=== PATIENT | female | born 1990 | race Hispanic/Latino ===

== ENCOUNTER 2017-11-24 19:32 | Inpatient (IN) | payer BC ==
[2017-11-24 20:26] LABS: BASO # 0.08 K/mm3 (0.0-2.0); BASO % 0.9 % (0.0-3.0); EOS # 0.5 (0.0-0.7); GRAN # 5.2 (1.4-6.5); GRAN % 55.9 % (50.0-68.0); HEMOGLOBIN 11.4 g/dL (12.0-16.0); LYMPH % 32.1 % (22.0-35.0); MEAN CELL VOLUME 86.4 fl (80.0-105.0); MEAN CORPUSCULAR HEMOGLOBIN 28.7 pg (25.0-35.0); MEAN CORPUSCULAR HGB CONC 33.2 g/dl (31.0-37.0); MEAN PLATELET VOLUME 11.5 fl (7.0-11.0); MONO # 0.6 (0.1-0.6); MONO % 6.1 % (1.0-6.0); RBC 3.97 10^6/uL (3.5-6.1); WHITE BLOOD COUNT 9.3 10^3/ul (4.5-11.0)
[2017-11-24 20:35] LABS: ALB/GLOB RATIO 1.2 (1.1-1.8); ALBUMIN 4.3 g/dL (3.0-4.8); ALT/SGPT 25 U/L (7-56); AST/SGOT 23 U/L (14-36); BLOOD UREA NITROGEN 13 mg/dL (7-21); CALCIUM 9.1 mg/dL (8.4-10.5); GFR AFRICAN-AMERICAN > 60; GFR NON-AFRICAN AMERICAN > 60
[2017-11-24] MEDS ORDERED: Vancomycin 1gm in NS 250ml 1 GM/250 ML BAG IVPB STA (21:34)
[2017-11-24] MEDS ORDERED: Piperacillin/Tazobact 3.375 gm 100 ML IVPB STA (21:34)
[2017-11-24] MEDS ORDERED: Sodium Chloride 0.9% 1,000 ML IV STA (21:36)
--- NOTE | 2017-11-24 22:13 | ED PDOC ---
Arrival/HPI - General Chief Complaint: Breast Problem Time Seen by Provider: 11/24/17 19:54 Historian: Patient, Parent - History of Present Illness Narrative History of Present Illness (Text): 11/24/17 22:15 26yr old female presents today with worsening left breast pain. pt states she was seen at [facility] [place] and had I&D of left breast. Patient states she was discharged home on Bactrim and Keflex. Patient states symptoms are worsening. Patient states pain is increasing. Patient states erythema has increased. Patient states she now has pain and swelling into the left axilla. She denies dizziness or weakness. Patient is complaining of subjective fevers at home. Patient states she's feeling fatigued. Past Medical History - Provider Review Nursing Documentation Reviewed: Yes - Travel History Have you recently traveled outside [place] w/in the past 3 mons?: No - Cardiac Hx Cardiac Disorders: No - Pulmonary Hx Respiratory Disorders: Yes Hx Asthma: Yes - Neurological Hx Neurological Disorder: No - HEENT Hx HEENT Disorder: No - Renal Hx Renal Disorder: No - Endocrine/Metabolic Hx Endocrine Disorders: Yes Hx Hypothyroidism: Yes - Hematological/Oncological Hx Blood Disorders: No - Integumentary Hx Dermatological Disorder: Yes Other/Comment: ABSCESS - Musculoskeletal/Rheumatological Hx Musculoskeletal Disorders: No - Gastrointestinal Hx Gastrointestinal Disorders: No - Genitourinary/Gynecological Hx Genitourinary Disorders: No - Psychiatric Hx Psychophysiologic Disorder: No Hx Substance Use: No - Surgical History Hx Section: Yes Family/Social History - Physician Review Nursing Documentation Reviewed: Yes Family/Social History: Neoplasm/Cancer (breast CA; mother) Smoking Status: Never Smoked Hx Alcohol Use: No Hx Substance Use: No Allergies/Home Meds Allergies/Adverse Reactions: Allergies shellfish derived Allergy (Verified 11/24/17 19:34) SWELLING Home Medications: Home Meds Medication Instructions Recorded Confirmed Albuterol HFA [Ventolin HFA 90 2 puff NEB Q6 PRN 11/24/17 11/24/17 mcg/actuation (8 g)] Cephalexin [Keflex] 500 mg PO QID 11/24/17 11/24/17 Ergocalciferol (Vitamin D2) 1 tab PO QWK 11/24/17 11/24/17 [Vitamin D2] Levothyroxine [Synthroid] 75 mcg PO DAILY 11/24/17 11/24/17 Montelukast [Singulair] 10 mg PO DAILY 11/24/17 11/24/17 Sulfamethoxazole/Trimethoprim 1 tab PO BID 11/24/17 11/24/17 [Bactrim DS Tab] Review of Systems - Review of Systems Constitutional: Fevers. absent: Fatigue Respiratory: absent: SOB, Cough Cardiovascular: absent: Chest Pain, Palpitations Gastrointestinal: absent: Abdominal Pain, Nausea, Vomiting Genitourinary Female: absent: Dysuria Musculoskeletal: absent: Arthralgias Skin: Abscess, Cellulitis Neurological: absent: Headache, Dizziness Psychiatric: absent: Anxiety, Depression Physical Exam Vital Signs Reviewed: Yes Vital Signs Temp Pulse Resp BP Pulse Ox 11/24/17 19:38 99.2 F 78 16 120/69 96 Temperature: Afebrile Blood Pressure: Normal Pulse: Regular Respiratory Rate: Normal Appearance: Positive for: Well-Appearing, Non-Toxic, Comfortable Pain Distress: None Mental Status: Positive for: Alert and Oriented X 3 - Systems Exam Head: Present: Atraumatic Mouth: Present: Moist Mucous Membranes Neck: Present: Normal Range of Motion Respiratory/Chest: Present: Clear to Auscultation, Good Air Exchange. No: Respiratory Distress, Accessory Muscle Use Cardiovascular: Present: Regular Rate and Rhythm, Normal S1, S2. No: Murmurs Abdomen: No: Tenderness, Distention Breast/Axillary: Present: Axillary Lymphad (there is a large quarter sized tender mobile mass noted to the axilla. no erythema. ), Erythema, Masses, Swelling, Tender to Palpation (left breast; there is tenderness, swelling and erythema with induration noted to the lower outer quadrant of the breast; there is a dime sized wound noted to the breast tissue; + tenderness, + warmth. ). No : Fluctuance Back: Present: Normal Inspection. No: Midline Tenderness, Paraspinal Tenderness Upper Extremity: Present: Normal ROM Lower Extremity: Present: Normal ROM Neurological: Present: GCS=15, Speech Normal Skin: Present: Warm, Dry, Normal Color Psychiatric: Present: Alert, Oriented x 3 Medical Decision Making ED Course and Treatment: 11/24/17 22:27 26-year-old female with a left breast abscess/mass status post incision and drainage with failure of outpatient antibiotics CBC within normal limits CMP within normal limits Blood cultures pending Wound cultures pending vancomycin and zosyn started IV toradol given for pain. pt was seen and evaluated by dr. brown; will add US of left breast r/o mass. US; FINDINGS: Limited images of the left breast from 4:00 - 5 o'clock. Edematous breast tissue is present. No drainable fluid collection identified. No solid mass identified. IMPRESSION: Edema 4-5 o clock without abscess or mass. case discussed with dr. mcmillan in depth; accepts admission; will consult surgery ; dr. barrera. Impression; breast cellulitis, failure of outpatient abx. admit med/surg. 11/25/17 00:16 during infusion of vancomycin; pt developed pruritis; vancomycin stopped; benadryl and solumedrol given IV. lungs cta bilaterally. pt in no distress. physical therapy resident at bedside. - Lab Interpretations Lab Results: 11/24/17 20:15 11/24/17 20:15 Lab Results 11/24/17 20:15: WBC 9.3, RBC 3.97, Hgb 11.4 L, Hct 34.3 L, MCV 86.4, MCH 28.7, MCHC 33.2, RDW 13.0, Plt Count 296, MPV 11.5 H, Gran % 55.9, Lymph % (Auto) 32.1 , Ada % (Auto) 6.1 H, Eos % (Auto) 5.0, Baso % (Auto) 0.9, Gran # 5.20, Lymph # (Auto) 3.0, Ada # (Auto) 0.6, Eos # (Auto) 0.5, Baso # (Auto) 0.08 11/24/17 20:15: Sodium 143, Potassium 4.4, Chloride 105, Carbon Dioxide 25, Anion Gap 17, BUN 13, Creatinine 0.9, Est GFR ( Amer) > 60, Est GFR (Non- Af Amer) > 60, Random Glucose 84, Calcium 9.1, Total Bilirubin 0.1 L, AST 23, ALT 25, Alkaline Phosphatase 87, Total Protein 7.9, Albumin 4.3, Globulin 3.6, Albumin/Globulin Ratio 1.2 - RAD Interpretation Radiology Orders: 11/24/17 21:36 BREAST UNILATERAL LEFT [US] Stat - Medication Orders Current Medication Orders: Diphenhydramine HCl (Benadryl) 50 mg IVP STAT STA Stop: 11/25/17 00:14 Methylprednisolone (Solu-Medrol) 125 mg IVP STAT STA Stop: 11/25/17 00:14 Discontinued Medications Vancomycin HCl (Vancomycin 1gm) 1 gm in 250 mls @ 167 mls/hr IVPB STAT STA PRN Reason: Protocol Stop: 11/24/17 23:03 Last Admin: 11/24/17 23:20 Dose: 167 mls/hr eMAR Start Stop Document 11/24/17 23:20 AD (Rec: 11/24/17 23:22 AD [email or web address]) Intravenous Solution Start Date 11/24/17 Start Time 23:22 Piperacillin Sod/Tazobactam Sod (Zosyn 3.375 In Ns 100ml) 100 mls @ 200 mls/hr IVPB STAT STA PRN Reason: Protocol Stop: 11/24/17 22:03 Last Admin: 11/24/17 21:45 Dose: 200 mls/hr eMAR Start Stop Document 11/24/17 21:45 AD (Rec: 11/24/17 22:15 AD [email or web address]) Intravenous Solution Start Date 11/24/17 Start Time 21:45 Sodium Chloride (Sodium Chloride 0.9%) 1,000 mls @ 999 mls/hr IV .Q1H1M STA Stop: 11/24/17 22:36 Last Admin: 11/24/17 21:45 Dose: 999 mls/hr eMAR Start Stop Document 11/24/17 21:45 AD (Rec: 11/24/17 22:15 AD [email or web address]) Intravenous Solution Start Date 11/24/17 Start Time 21:45 Ketorolac Tromethamine (Toradol) 30 mg IVP STAT STA Stop: 11/24/17 20:58 Last Admin: 11/24/17 21:09 Dose: 30 mg MAR Pain Assessment Document 11/24/17 21:09 AD (Rec: 11/24/17 21:09 AD [email or web address] Pain Reassessment Is this a pain reassessment? No Presence of Pain Presence of Pain Yes Pain Scale Used Pain Scale Used Numeric Location Left, Right or Bilateral Left Pain Location Body Site Breast Description Intensity of Pain at present 5 IVP Administration Document 11/24/17 21:09 AD (Rec: 11/24/17 21:09 AD [email or web address]) Charges for Administration # of IVP Administrations 1 Disposition/Present on Arrival - Present on Arrival Any Indicators Present on Arrival: No History of DVT/PE: No History of Uncontrolled Diabetes: No Urinary Catheter: No History of Decub. Ulcer: No History Surgical Site Infection Following: None - Disposition Have Diagnosis and Disposition been Completed?: Yes Diagnosis: Cellulitis of breast Disposition: HOSPITALIZED Disposition Time: 22:09 Patient Plan: Admission Patient Problems: Current Active Problems Problem Status Onset Cellulitis of breast Acute Condition: FAIR
[2017-11-25] MEDS ORDERED: DiphenhydrAMINE 50 mg/ml Inj IVP STA (00:13)
--- NOTE | 2017-11-25 00:16 | US ---
EXAM: US Left Breast, Complete EXAM DATE/TIME: 11/24/2017 9:36 PM CLINICAL HISTORY: 26 years old, female; Pain; Breast pain; Left; Prior surgery; Surgery date: Post-operative (0-2 days); Surgery type: Abscess drainage; Additional info: Breast abscess/cellulitis TECHNIQUE: Complete real time ultrasound of all four quadrants of the left breast and the retroareolar region, including ultrasound of the axilla when performed. COMPARISON: No relevant prior studies available. FINDINGS: Limited images of the left breast from 4:00 - 5 o'clock. Edematous breast tissue is present. No drainable fluid collection identified. No solid mass identified. IMPRESSION: Edema 4-5 o clock without abscess or mass. ASSESSMENT: BI-RADS category 0. History lump in breast on paperwork. No prior studies or reports provided. Recommend correlation with prior studies. Additional imaging with mammogram may be necessary depending on the patient's clinical history and exam.
--- NOTE | 2017-11-25 00:37 | CP.PCM.CON ---
History of Present Illness - History of Present Illness History of Present Illness: General Surgery consult note for Dr. Yuen Consult for: persistent cellulitis left breast s/p incision and drainage Pt is a 27F who presented to ED fore persistent pain and redness of her left breast where she had an incision and drainage at [facility] [place] 3 days ago. Patient states that one week ago she noted a lump in her left axilla when shaving and went to [facility] [place]. They discovered a breast abscess and did an incision and drainage without packing and patient was sent home on PO keflex and bactrim. Patient states that redness and pain has not improved and that she has malaise and chills at home so she [place] [facility] Patient also complains of sharp BL chest pain. Patient denies any fevers, SOB, nausea, vomiting, diarrhea, or any other symptoms. Patient has a 7 month old son at home but stopped breast feeding 4-5 months ago. Denies any difficulty breast feeding or any nipple discharge since. During exam patient had vancomycin running and had received zosyn just prior and was complaining of redness and diffuse itching PMH: asthma, hypothryoidism PSH: \I&D left breast, c-sectionx2 all: Shellfish social: denies all substances Review of Systems - Review of Systems All systems: reviewed and no additional remarkable complaints except (as per HPI ) Past Patient History - Past Medical History & Family History Past Medical History?: Yes Pertinent Family History: mother diagnosed with breast cancer in her 40's - Past Social History Smoking Status: Never Smoked Alcohol: None Drugs: Denies - CARDIAC Hx Cardiac Disorders: No - PULMONARY Hx Respiratory Disorders: Yes Hx Asthma: Yes - NEUROLOGICAL Hx Neurological Disorder: No - HEENT Hx HEENT Problems: No - RENAL Hx Chronic Kidney Disease: No - ENDOCRINE/METABOLIC Hx Endocrine Disorders: Yes Hx Hypothyroidism: Yes - HEMATOLOGICAL/ONCOLOGICAL Hx Blood Disorders: No - INTEGUMENTARY Hx Dermatological Problems: Yes Other/Comment: ABSCESS - MUSCULOSKELETAL/RHEUMATOLOGICAL Hx Musculoskeletal Disorders: No - GASTROINTESTINAL Hx Gastrointestinal Disorders: No - GENITOURINARY/GYNECOLOGICAL Hx Genitourinary Disorders: No - PSYCHIATRIC Hx Psychophysiologic Disorder: No Hx Substance Use: No - SURGICAL HISTORY Hx Section: Yes Meds Allergies/Adverse Reactions: Allergies Allergy/AdvReac Type Severity Reaction Status Date / Time shellfish derived Allergy SWELLING Verified 11/24/17 19:34 vancomycin Allergy ITCHING Verified 11/25/17 01:23 Physical Exam - Constitutional Appears: Well, Non-toxic, No Acute Distress - Head Exam Head Exam: ATRAUMATIC, NORMOCEPHALIC - Eye Exam Eye Exam: Normal appearance. absent: Conjunctival injection, Scleral icterus - ENT Exam ENT Exam: Mucous Membranes Moist, Normal Oropharynx - Respiratory Exam Respiratory Exam: NORMAL BREATHING PATTERN. absent: Accessory Muscle Use, Respiratory Distress - Cardiovascular Exam Cardiovascular Exam: RRR - GI/Abdominal Exam GI & Abdominal Exam: Soft. absent: Distended, Tenderness - Extremities Exam Extremities exam: Negative for: calf tenderness, pedal edema - Neurological Exam Neurological exam: Alert, Oriented x3 - Psychiatric Exam Psychiatric exam: Normal Affect, Normal Mood - Skin Skin Exam: Dry, Erythema, Warm - Additional Findings Additional findings: Breast exam: left breast with incision approximately 1cm at the 5o'clock position with small amount of surrounding induration but no fluctuance, no expressible fluid, area of erythema extending medially outside the borders previously marked at former hospitalization. No other breast masses bilateral breast left axillary exam: subcutaneous mass approximately 3cm in diameter, mobile, tender. No cervical or infraclavian/supraclavian lymphadenopathy Results - Vital Signs Recent Vital Signs: Last Vital Signs Temp 99.2 F 11/24/17 19:38 Pulse 78 11/24/17 19:38 Resp 16 11/24/17 19:38 BP 120/69 11/24/17 19:38 Pulse Ox 96 11/24/17 19:38 - Labs Result Diagrams: 11/24/17 20:15 11/24/17 20:15 Assessment & Plan - Assessment and Plan (Free Text) Assessment: 27F with a breast abscess s/p incision and drainage with worsening cellulitis refractory to outpatient PO antibiotics Plan: US: edema, no fluid collection trend CBC F/U wound cultures EKG to r/o cardiac cause of chest pain Recommend ID consult for continued antibiotic administration. For now will D/C vanc and zosyn d/t pt reaction and start one dose of zyvox and merrem in the AM. Warm compresses to the left breast PRN pain medication Will discuss with Dr. Wilfrid Gonzalez PGY2
[2017-11-25 01:05] VITALS: BMI 23.9
[2017-11-25] MEDS ORDERED: Albuterol 0.083% Inhal Sol (2.5 mg/3 mL) UD IH PRN (02:10)
[2017-11-25] MEDS: Meropenem 500 MG in Sodium Chloride 0.9% 50 ML IVPB SCH ×4 (05:46→21:34)
[2017-11-25] MEDS ORDERED: Linezolid 600 mg in D5W 300 ml 600 MG/300 ML BAG IVPB SCH (10:00)
--- NOTE | 2017-11-25 17:02 | CARD ---
APPROVED REPORT EKG Measurement Heart [id number] ID [id number] <Conclusion> Sinus rhythm with marked sinus arrhythmia Otherwise normal ECG
--- NOTE | 2017-11-25 17:52 | CP.PCM.CON ---
History of Present Illness - History of Present Illness History of Present Illness: Infectious Disease Consultation: November 25, 2017 27 yo female with pain and redness in her left breast with lump in left lower axilla who initially went to [facility] [place] for evaluation. The patient was determined to have a left lower quadrant abscess in the left breast. Enlarged lymph nodes palpitated in left axilla. She was given Bactim DS and Keflex. Redness and pain did not improve and the patient came to [facility] [place] for evaluation. In ER the patient received IV Vancomycin and became flush (Tahmina's Syndrome? Rash is not there now when I evaluate the patient). PMHx: Asthma, Hypothyroidism PSHx: Left breast I&D, x 2 Allergies: Shellfish Vancomycin ?? (see above) Social Hx: No tobacco or illicit drug use Social EtOH Active Medications Albuterol Sulfate (Albuterol 0.083% Inhal Ave (2.5 Mg/3 Ml) Ud) 2.5 mg IH [id number] PRN PRN Reason: Shortness of Breath Ibuprofen (Motrin Tab) 600 mg PO Q6H PRN PRN Reason: Pain, moderate (4-7) Last Admin: 11/25/17 14:44 Dose: 600 mg Levothyroxine Sodium (Synthroid) 75 mcg PO 0600 LOUANN Montelukast Sodium (Singulair) 10 mg PO HS LOUANN Family Hx: breast cancer in mother and grandmother. ROS: Fevers, chills, left breast pain No chest pain, abdominal pain, melena, hematuria, hematemesis, hematochezia, depression, anxiety, diarrhea, headaches, dizziness, vision loss, hearing loss, loss of consciousness. Past Patient History - Past Medical History & Family History Past Medical History?: Yes - Past Social History Smoking Status: Never Smoked Alcohol: None Drugs: Denies - CARDIAC Hx Cardiac Disorders: No - PULMONARY Hx Respiratory Disorders: Yes Hx Asthma: Yes - NEUROLOGICAL Hx Neurological Disorder: No - HEENT Hx HEENT Problems: No - RENAL Hx Chronic Kidney Disease: No - ENDOCRINE/METABOLIC Hx Endocrine Disorders: Yes Hx Hypothyroidism: Yes - HEMATOLOGICAL/ONCOLOGICAL Hx Blood Disorders: No - INTEGUMENTARY Hx Dermatological Problems: Yes Other/Comment: ABSCESS - MUSCULOSKELETAL/RHEUMATOLOGICAL Hx Musculoskeletal Disorders: No - GASTROINTESTINAL Hx Gastrointestinal Disorders: No - GENITOURINARY/GYNECOLOGICAL Hx Genitourinary Disorders: No - PSYCHIATRIC Hx Psychophysiologic Disorder: No Hx Substance Use: No - SURGICAL HISTORY Hx Section: Yes Meds Allergies/Adverse Reactions: Allergies Allergy/AdvReac Type Severity Reaction Status Date / Time shellfish derived Allergy SWELLING Verified 11/24/17 19:34 vancomycin Allergy ITCHING Verified 11/25/17 01:23 - Medications Medications: Current Medications Albuterol Sulfate (Albuterol 0.083% Inhal Ave (2.5 Mg/3 Ml) Ud) 2.5 mg IH [id number] PRN PRN Reason: Shortness of Breath Ibuprofen (Motrin Tab) 600 mg PO Q6H PRN PRN Reason: Pain, moderate (4-7) Last Admin: 11/25/17 14:44 Dose: 600 mg Levothyroxine Sodium (Synthroid) 75 mcg PO 0600 LOUANN Montelukast Sodium (Singulair) 10 mg PO HS LOUANN Physical Exam - Constitutional Appears: Well, Non-toxic, No Acute Distress - Head Exam Head Exam: ATRAUMATIC, NORMOCEPHALIC - Eye Exam Eye Exam: EOMI, PERRL Pupil Exam: NORMAL ACCOMODATION, PERRL - ENT Exam ENT Exam: Mucous Membranes Moist, Normal External Ear Exam, TM's Normal Bilaterally - Neck Exam Neck exam: Positive for: Full Rom, Normal Inspection - Respiratory Exam Respiratory Exam: Clear to Auscultation Bilateral, NORMAL BREATHING PATTERN. absent: Rales, Rhonchi, Wheezes - Cardiovascular Exam Cardiovascular Exam: REGULAR RHYTHM, RRR, +S1, +S2 - GI/Abdominal Exam GI & Abdominal Exam: Normal Bowel Sounds, Soft. absent: Distended, Tenderness - Extremities Exam Extremities exam: Positive for: full ROM, normal inspection Additional comments: except left axilla as described below. - Neurological Exam Neurological exam: Alert, CN II-XII Intact, Oriented x3 - Psychiatric Exam Psychiatric exam: Normal Affect, Normal Mood - Skin Additional comments: Breast exam: left breast with incision approximately 1cm at the 5o'clock position with small amount of surrounding induration but no fluctuance, no expressible fluid, area of erythema extending medially outside the borders previously marked at former hospitalization. No other breast masses bilateral breast left axillary exam: subcutaneous mass approximately 3cm in diameter, mobile, tender. No cervical or infraclavian/supraclavian lymphadenopathy Results - Vital Signs Recent Vital Signs: Last Vital Signs Temp 97.9 F 11/25/17 08:23 Pulse 80 11/25/17 08:23 Resp 20 11/25/17 08:23 BP 120/66 11/25/17 08:23 Pulse Ox 97 11/25/17 08:23 - Labs Result Diagrams: 11/24/17 20:15 11/24/17 20:15 Assessment & Plan - Assessment and Plan (Free Text) Assessment: 27 yo female with left lower quadrant abscess in the left breast with enlarged axillary lymph nodes. Started on Meropenem and Zyvox for treatment. Will check records at [facility] for cultures (hopefully they were done.). Local wound care as per surgery. Explained infectious issues to the patient and potential time frames of improvement. Thank you for allowing me to participate in the care of the patient, we will follow with you.
--- NOTE | 2017-11-26 00:34 | HP ---
DATE OF EXAM: 11/25/2017 HISTORY OF PRESENT ILLNESS: This 27-year-old female was examined at her bedside in the presence of her nurse Debbie Law, and her . The patient presented to [facility] ER last evening complaining of pain, erythema and swelling of a left breast abscess. Apparently this occurred a few days ago, at which time, she went to the [facility] ER. She was seen in evaluation and had a I&D of abscess, and was sent home on oral Keflex and Bactrim. The patient re-presented to the [facility] ER complaining of malaise, chills and worsening pain and erythema to her left breast as well as feeling enlarged lymph nodes in her left axilla. The patient in the [facility] was given IV vancomycin, experienced a flushing reaction, and then was given meropenem and Zyvox, and is currently awaiting Infectious Disease consultation. The patient is also being followed by Dr. Jacky Yuen from Surgery. The patient is a 27-year-old mother, who had her last child on 04/25/2017, and has not breastfed for the past several months. ALLERGIES: SHE ADMITS TO A SENSITIVITY TO SHELLFISH AND NOW VANCOMYCIN. OUTPATIENT MEDICATIONS: Had included Bactrim, Keflex, Singulair, vitamin D, ProAir inhaler and Synthroid. REVIEW OF SYSTEMS: CONSTITUTIONAL: She had malaise and chills. HEAD: No headache or seizure. EYES: No change in visual acuity. EARS: No hearing loss. THROAT: No swallowing difficulty. NECK: No stiffness. CARDIAC: No chest pain, no hypertension. PULMONARY: No cough. No hemoptysis. GASTROINTESTINAL: No peptic ulcer disease. GENITOURINARY: No dysuria. SKIN: As per HPI. VASCULAR: No claudication. PSYCHOLOGICAL: Alert and oriented x3. NEUROLOGICAL: Intact. FAMILY HISTORY: Significant in that her mother and grandmother, both had breast cancer. Her mother is status post bilateral mastectomy, and her mother was diagnosed with breast cancer at age 37. PHYSICAL EXAMINATION: VITAL SIGNS: Temperature 97.9, respirations 20, pulse 80, blood pressure 120/66. Pulse ox 97% room air. She is in a normal sinus rhythm on the hall monitor. HEENT: Head: Normocephalic, atraumatic. Eyes: No icterus. Ears: Clear. Throat: Noninjected. NECK: Supple. HEART: Regular S1 and S2. LUNGS: Clear. ABDOMEN: Soft. EXTREMITIES: No edema. SKIN: Without rash. NEUROLOGICAL: Intact. PSYCHOLOGICAL: Alert. VASCULAR: Legs warm to touch. BREASTS: Left breast was examined with nurse Debbie Law. She does have an area of erythema around the incision and drainage site of her recently lanced abscess, and there was a palpable lymph node in her left axilla. Breast ultrasound was reviewed, it shows edema at the 4 o'clock to 5 o'clock position, with no evidence of abscess or mass. EKG was reviewed and shows normal sinus rhythm with nonspecific ST-T wave changes. IMPRESSION: A 27-year-old female with newly noted left breast abscess, history of hypothyroidism and asthma, now admitted with abscess and cellulitis of the breast, and evidence of left axillary lymph node involvement. PLAN: The plan at present is to await blood and wound cultures. She will continue on dual nebulizer every 6 hours p.r.n. shortness of breath, meropenem 500 mg IV every 8, Motrin 600 mg p.o. every 6 hours p.r.n. pain, Singulair 10 mg p.o. at bedtime, Synthroid 75 mcg p.o. daily and Zyvox 600 mg p.o. every 12. She is on a regular diet. She is ordered to have warm compresses hourly to the left breast area. She is encouraged to ambulate with assistance, and will be followed by Surgery and Infectious Disease. 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 In the discussion with the possibility of a mammogram when stable and possible genetic [facility] testing given her maternal strong family history of breast cancer as well. The patient was aware and in agreement with the above, and hopefully will be compliant with this recommendation. Greater than 75 minutes was spent in the care management, review of labs, orders and x-rays for this patient. All questions were answered. Leeann Garcia MD MTDD
[2017-11-26] MEDS: Levothyroxine 75 MCG TAB PO SCH (05:48)
[2017-11-26] MEDS: Meropenem 500 MG in Sodium Chloride 0.9% 50 ML IVPB SCH ×3 (05:48→21:33)
--- NOTE | 2017-11-26 07:33 | CP.PCM.PN ---
Subjective - Date & Time of Evaluation Date of Evaluation: 11/26/17 Time of Evaluation: 07:00 - Subjective Subjective: General Surgery Note for Dr. Yuen Patient seen and examined at bedside. No acute event overnight. Patient states pain is still present. She denies fever/chills. Patient is tolerating regular diet and having BMs. No other complaints at this time. Objective - Vital Signs/Intake and Output Vital Signs (last 24 hours): Temp Pulse Resp BP Pulse Ox 98.0 F 61 20 110/64 93 L 11/25/17 18:00 11/25/17 18:00 11/25/17 18:00 11/25/17 18:00 11/25/17 18:00 Intake and Output: 11/26/17 11/26/17 06:59 18:59 Intake Total 240 Balance 240 - Medications Medications: Current Medications Albuterol Sulfate (Albuterol 0.083% Inhal Ave (2.5 Mg/3 Ml) Ud) 2.5 mg IH [id number] PRN PRN Reason: Shortness of Breath Meropenem 500 mg/ Sodium (Chloride) 50 mls @ 100 mls/hr IVPB Q8 LOUANN PRN Reason: Protocol Last Admin: 11/26/17 05:48 Dose: 100 mls/hr Ibuprofen (Motrin Tab) 600 mg PO Q6H PRN PRN Reason: Pain, moderate (4-7) Last Admin: 11/25/17 14:44 Dose: 600 mg Levothyroxine Sodium (Synthroid) 75 mcg PO 0600 [facility] Last Admin: 11/26/17 05:48 Dose: 75 mcg Linezolid (Zyvox) 600 mg PO Q12 LOUANN PRN Reason: Protocol Last Admin: 11/25/17 21:34 Dose: 600 mg Montelukast Sodium (Singulair) 10 mg PO HS [facility] Last Admin: 11/25/17 21:34 Dose: 10 mg - Additional Findings Additional findings: - Constitutional Appears: Well, Non-toxic, No Acute Distress - Head Exam Head Exam: ATRAUMATIC, NORMOCEPHALIC - Eye Exam Eye Exam: Normal appearance - ENT Exam ENT Exam: Mucous Membranes Moist - Respiratory Exam Respiratory Exam: NORMAL BREATHING PATTERN - Cardiovascular Exam Cardiovascular Exam: RRR - GI/Abdominal Exam GI & Abdominal Exam: Soft. absent: Distended, Tenderness - Extremities Exam Extremities exam: Negative for: calf tenderness, pedal edema - Neurological Exam Neurological exam: Alert, Awake, Oriented x3 - Psychiatric Exam Psychiatric exam: Normal Affect, Normal Mood - Skin Skin Exam: Dry, Erythema, Warm - Additional Findings Additional findings: Breast exam: left breast with incision approximately 1cm at the 5o'clock position with small amount of surrounding induration but no fluctuance, no drainage left axillary exam: subcutaneous mass approximately 3cm in diameter, mobile, tender. No cervical or infraclavian/supraclavian lymphadenopathy Assessment and Plan - Assessment and Plan (Free Text) Assessment: 27F with a breast abscess s/p incision and drainage with worsening cellulitis refractory to outpatient oral antibiotics Plan: f/u wound cultures f/u ID recommendations Continue zyvox and merrem Warm compresses to axilla Analgesics PRN Further recommendations as per Dr. Wilfrid Gale PGY1
--- NOTE | 2017-11-26 18:01 | CP.PCM.PN ---
Subjective - Date & Time of Evaluation Date of Evaluation: 11/26/17 Time of Evaluation: 16:00 - Subjective Subjective: Infectious Disease Follow Up: November 26, 2017 27 yo female with pain and redness in her left breast with lump in left lower axilla who initially went to [facility] [place] for evaluation. The patient was determined to have a left lower quadrant abscess in the left breast. Enlarged lymph nodes palpitated in left axilla. She was given Bactim DS and Keflex. Redness and pain did not improve and the patient came to [facility] [place] for evaluation. In ER the patient received IV Vancomycin and became flush (Tahmina's Syndrome? Rash is not there now when I evaluated the patient). The patient still complains of left breast pain. Objective - Vital Signs/Intake and Output Vital Signs (last 24 hours): Temp Pulse Resp BP Pulse Ox 97.8 F 93 H 19 112/68 100 11/26/17 07:39 11/26/17 07:39 11/26/17 07:39 11/26/17 07:39 11/26/17 07:39 Intake and Output: 11/26/17 11/26/17 06:59 18:59 Intake Total 240 720 Balance 240 720 - Medications Medications: Current Medications Albuterol Sulfate (Albuterol 0.083% Inhal Ave (2.5 Mg/3 Ml) Ud) 2.5 mg IH [id number] PRN PRN Reason: Shortness of Breath Meropenem 500 mg/ Sodium (Chloride) 50 mls @ 100 mls/hr IVPB Q8 LOUANN PRN Reason: Protocol Last Admin: 11/26/17 13:03 Dose: 100 mls/hr Ibuprofen (Motrin Tab) 600 mg PO Q6H PRN PRN Reason: Pain, moderate (4-7) Last Admin: 11/25/17 14:44 Dose: 600 mg Levothyroxine Sodium (Synthroid) 75 mcg PO 0600 [facility] Last Admin: 11/26/17 05:48 Dose: 75 mcg Linezolid (Zyvox) 600 mg PO Q12 LOUANN PRN Reason: Protocol Last Admin: 11/26/17 10:21 Dose: 600 mg Montelukast Sodium (Singulair) 10 mg PO HS [facility] Last Admin: 11/25/17 21:34 Dose: 10 mg - Constitutional Appears: Non-toxic, No Acute Distress, Chronically Ill - Head Exam Head Exam: ATRAUMATIC, NORMOCEPHALIC - Eye Exam Eye Exam: EOMI, PERRL Pupil Exam: NORMAL ACCOMODATION, PERRL - ENT Exam ENT Exam: Mucous Membranes Moist, Normal External Ear Exam, TM's Normal Bilaterally - Neck Exam Neck Exam: Full ROM, Normal Inspection - Respiratory Exam Respiratory Exam: Clear to Ausculation Bilateral, NORMAL BREATHING PATTERN. absent: Rales, Rhonchi, Wheezes - Cardiovascular Exam Cardiovascular Exam: REGULAR RHYTHM, RRR, +S1, +S2 - GI/Abdominal Exam GI & Abdominal Exam: Soft, Normal Bowel Sounds. absent: Distended, Tenderness - Extremities Exam Extremities Exam: Full ROM, Normal Inspection - Neurological Exam Neurological Exam: Alert, Awake, CN II-XII Intact, Oriented x3 - Psychiatric Exam Psychiatric exam: Normal Affect, Normal Mood - Skin Skin Exam: Dry, Intact, Warm Additional comments: Breast exam: left breast with incision approximately 1cm at the 5o'clock position with small amount of surrounding induration but no fluctuance, no expressible fluid, area of erythema extending medially outside the borders previously marked at former hospitalization. No other breast masses bilateral breast left axillary exam: subcutaneous mass approximately 3cm in diameter, mobile, tender. No cervical or infraclavian/supraclavian lymphadenopathy Assessment and Plan - Assessment and Plan (Free Text) Assessment: 27 yo female with left lower quadrant abscess in the left breast with enlarged axillary lymph nodes. Started on Meropenem and Zyvox for treatment. Will check records at [facility] [place] for cultures (hopefully they were done.). Local wound care as per surgery. Explained infectious issues to the patient and potential time frames of improvement. She is still complaining of left breast pain. Gram positive cocci in wound culture. Thank you for allowing me to participate in the care of the patient, we will follow with you.
--- NOTE | 2017-11-27 01:40 | PN ---
DATE: 11/26/2017 SUBJECTIVE: This 27-year-old female was examined at her bedside in the presence of her mother and nurse Sarai Nguyen registered nurse. The patient remains hospitalized with left breast cellulitis and lymph gland swelling secondary to recent left breast skin infection status post incision and drainage and failure to respond to oral antibiotics as an outpatient including Keflex and Bactrim. The patient is being followed by Dr. Yuen from Surgery as well as Dr. Huy Giraldo from Infectious Disease. At present, she is receiving meropenem 500 mg IV every 8 as well as Zyvox 600 mg p.o. every 12. Her blood cultures show no growth at 24 hours, and her wound culture is showing a Gram-positive cocci; identification and sensitivities are pending. PHYSICAL EXAMINATION HEENT: Head normocephalic, atraumatic. Eyes: No icterus. Ears: Clear. Throat: Noninjected. NECK: Supple. HEART: Regular S1 and S2. LUNGS: Clear. ABDOMEN: Soft. EXTREMITIES: No edema. SKIN: Without rash. NEUROLOGICAL: Intact. PSYCHOLOGICAL: Alert. VASCULAR: Legs warm to touch. BREASTS: Left breast area of cellulitis is improved with less erythema, less warmth. There has been no further spread of the cellulitic rash and she does have a persistent left axillary lymph node palpable. IMPRESSION: A 27-year-old female with acute left breast cellulitis, left axillary lymph gland adenopathy secondary to the localized infection in her breast with comorbidities of asthma, hypothyroidism. PLAN: Plan at present is to continue albuterol inhaler every 6 hours p.r.n. shortness of breath, meropenem 500 mg IV every 8, ibuprofen 600 mg p.o. every 6 hours p.r.n. pain, Singulair 10 mg p.o. at bedtime, Synthroid 75 mcg p.o. daily and Zyvox 600 mg p.o. every 12. The patient continues with warm soaks every 1 hour to the left breast wall for area. She is on a regular diet. She has been encouraged to ambulate with assistance, and will be followed on a daily basis by Surgery and Infectious Disease. As discussed with the patient and her mother at the bedside, she was reminded to follow up with her fusing furnace loader upon discharge for further breast exam studies including a mammography when stable, and given her strong maternal family history of breast cancer with her grandmother and mother, I have recommended she discuss this with her fusing furnace loader as well, and consider getting blood tested with the BRCA gene for completeness sake. The mother is aware and in agreement, and hopefully they will be compliant with these recommendations. Greater than 35 minutes was spent in the care management, review of labs, orders and x-rays. All questions were answered. Leeann Garcia MD [facility]DMeggan
[2017-11-27] MEDS: Levothyroxine 75 MCG TAB PO SCH (05:58)
[2017-11-27] MEDS: Meropenem 500 MG in Sodium Chloride 0.9% 50 ML IVPB SCH (05:58)
[2017-11-27 07:18] LABS: BASO # 0.07 K/mm3 (0.0-2.0); BASO % 0.9 % (0.0-3.0); EOS # 0.4 (0.0-0.7); EOS % 4.7 % (1.5-5.0); GRAN # 4.33 (1.4-6.5); HEMOGLOBIN 11.4 g/dL (12.0-16.0); LYMPH # 2.8 (1.2-3.4); LYMPH % 34.5 % (22.0-35.0); MEAN CELL VOLUME 88.3 fl (80.0-105.0); MEAN CORPUSCULAR HEMOGLOBIN 28.4 pg (25.0-35.0); MEAN CORPUSCULAR HGB CONC 32.2 g/dl (31.0-37.0); MEAN PLATELET VOLUME 11.5 fl (7.0-11.0); MONO # 0.5 (0.1-0.6); MONO % 5.9 % (1.0-6.0); RBC 4.01 10^6/uL (3.5-6.1); RED CELL DISTRIBUTION WIDTH 13.4 % (11.5-14.5)
[2017-11-27 07:43] LABS: ALB/GLOB RATIO 1.2 (1.1-1.8); ALBUMIN 3.7 g/dL (3.0-4.8); ALT/SGPT 21 U/L (7-56); AST/SGOT 16 U/L (14-36); BLOOD UREA NITROGEN 15 mg/dL (7-21); CALCIUM 8.4 mg/dL (8.4-10.5); GFR AFRICAN-AMERICAN > 60; GFR NON-AFRICAN AMERICAN > 60
[2017-11-27 07:50] VITALS: BP 102/63; PULSE 56; RESP 18; TEMP 97.5; O2SAT 98
[2017-11-27] MEDS ORDERED: Lidocaine 1% Inj (20ml) IJ STA (12:15)
--- NOTE | 2017-11-27 12:52 | PCM.SURG1 ---
Surgeon's Initial Post Op Note - Surgeon's Notes Surgeon: Dr. Yuen Cnc Lathe Machine Operator: Baljinder PGY1 Type of Anesthesia: Local Pre-Operative Diagnosis: Left axillary abscess Operative Findings: Left axillary abscess, 6 cc of purulent fluid aspirated Post-Operative Diagnosis: Left axillary abscess Operation Performed: US guided Drainage of Left axillary abscess at bedside Specimen/Specimens Removed: 6 cc of purulent fluid Estimated Blood Loss: EBL {In ML}: 2 Blood Products Given: N/A Drains Used: No Drains Post-Op Condition: Good Date of Surgery/Procedure: 11/27/17 Time of Surgery/Procedure: 12:52
--- NOTE | 2017-11-27 13:23 | CP.PCM.PN ---
Subjective - Date & Time of Evaluation Date of Evaluation: 11/27/17 Time of Evaluation: 07:00 - Subjective Subjective: Patient seen and examined at bedside this AM. Patient denies any fevers, chills , and states pain is improved. Objective - Vital Signs/Intake and Output Vital Signs (last 24 hours): Temp Pulse Resp BP Pulse Ox 97.5 F L 56 L 18 102/63 98 11/27/17 07:49 11/27/17 07:49 11/27/17 07:49 11/27/17 07:49 11/27/17 07:49 Intake and Output: 11/27/17 11/27/17 06:59 18:59 Intake Total 240 Balance 240 - Medications Medications: Current Medications Albuterol Sulfate (Albuterol 0.083% Inhal Ave (2.5 Mg/3 Ml) Ud) 2.5 mg IH [id number] PRN PRN Reason: Shortness of Breath Ibuprofen (Motrin Tab) 600 mg PO Q6H PRN PRN Reason: Pain, moderate (4-7) Last Admin: 11/25/17 14:44 Dose: 600 mg Levothyroxine Sodium (Synthroid) 75 mcg PO 0600 [facility] Last Admin: 11/27/17 05:58 Dose: 75 mcg Linezolid (Zyvox) 600 mg PO Q12 LOUANN PRN Reason: Protocol Last Admin: 11/27/17 09:22 Dose: 600 mg Montelukast Sodium (Singulair) 10 mg PO HS [facility] Last Admin: 11/26/17 21:34 Dose: 10 mg - Labs Labs: 11/27/17 07:00 11/27/17 07:00 - Constitutional Appears: Well, Non-toxic, No Acute Distress - Head Exam Head Exam: ATRAUMATIC, NORMOCEPHALIC - Eye Exam Eye Exam: Normal appearance. absent: Conjunctival injection, Scleral icterus - ENT Exam ENT Exam: Mucous Membranes Moist, Normal Oropharynx - Respiratory Exam Respiratory Exam: NORMAL BREATHING PATTERN. absent: Accessory Muscle Use, Respiratory Distress - Cardiovascular Exam Cardiovascular Exam: RRR - GI/Abdominal Exam GI & Abdominal Exam: Soft. absent: Distended - Extremities Exam Extremities Exam: absent: Calf Tenderness, Pedal Edema, Tenderness - Neurological Exam Neurological Exam: Alert, Awake, Oriented x3 - Psychiatric Exam Psychiatric exam: Normal Affect, Normal Mood - Skin Skin Exam: Dry, Intact, Normal Color, Warm Additional comments: left breast incision at 5o'clock with decreased cellulitis and no expressible fluid, and left axilla with swelling, fluctuance, minimal erythema, and small area of mobile induration Assessment and Plan - Assessment and Plan (Free Text) Assessment: 27F with left breast abscess s/p incision and drainage and possible left axilla with abscess Plan: Bedside ultrasound of the left axilla and possible aspiration Continue antibiotics Patient is clear to go home from a surgical standpoint with PO antibiotics per ID recommendations Follow up with Dr. Yuen in 1-2 weeks Patient may take motrin or tylenol for pain Call Dr. Yuen office or return to ER for any fevers, chills, worsened pain, swelling or erythema. Discussed with Dr. Yuen, who agrees with above Octavia Gonzalez, PGY2
--- NOTE | 2017-11-27 13:32 | DS ---
SUBJECTIVE: This 27-year-old female remains hospitalized with left breast cellulitis and axillary lymph gland swelling. She is being followed by Dr. Jacky Yuen from Surgery as well as Dr. Huy Giraldo from Infectious Disease. Her left breast wound culture is now growing methicillin-resistant staph aureus, it is sensitive to Zyvox. Of note, the patient denies fever, chills, chest pain or shortness of breath. PHYSICAL EXAMINATION VITAL SIGNS: Temperature of 97.5, respirations 18, pulse 56 and blood pressure 102/63 with a pulse ox of 100% on room air. HEENT: Head is normocephalic, atraumatic. Eyes: No icterus. Ears: Clear. Throat: Noninjected. NECK: Supple. HEART: Regular S1, S2. LUNGS: Clear. ABDOMEN: Soft. EXTREMITIES: No edema. SKIN: Without rash. NEUROLOGICAL: Intact. PSYCHOLOGICAL: Alert. BREASTS: Left breast cellulitis is improved. LABORATORY DATA: White count 8000, hemoglobin of 11.4, hematocrit 35.4, platelets 269,000. Sodium 142, K 3.9, chloride 104, bicarb 29, BUN 15, creatinine 0.7, random blood sugar 88. All liver function testing was normal including bilirubin 0.1, AST 16, ALT 21 and alkaline phosphatase 60. IMPRESSION: A 27-year-old female status post left breast cellulitis, now growing methicillin-resistant Staphylococcus aureus with comorbidities of asthma, hypothyroidism. PLAN: Plan is to continue Zyvox, Synthroid, Singulair, Motrin, meropenem, albuterol inhaler. The patient will need [employer]ARD and breast followup as an outpatient with her PMD and disposition timing will be decided by Dr. Huy Giraldo from Infectious Disease. She is receiving warm soaks to her left breast and the patient was counseled for greater than 35 minutes regarding all of the above. Leeann Garcia MD [facility]
--- NOTE | 2017-11-27 13:35 | CP.PCM.PN ---
Subjective - Date & Time of Evaluation Date of Evaluation: 11/27/17 Time of Evaluation: 12:30 - Subjective Subjective: Infectious Disease Follow Up: November 27 yo female with pain and redness in her left breast with lump in left lower axilla who initially went to [place] for evaluation. The patient was determined to have a left lower quadrant abscess in the left breast. Enlarged lymph nodes palpitated in left axilla. She was given Bactim DS and Keflex. Redness and pain did not improve and the [place] [facility] In ER the patient received IV Vancomycin and became flush (Tahmina's Syndrome? Rash is not there now when I evaluated the patient). The patient still complains of left breast pain. Left axillary lymph node enlargement. Surgery performed needle aspiration today draining 6 ml of purulent fluid. Cultures showing MRSA. Objective - Vital Signs/Intake and Output Vital Signs (last 24 hours): Temp Pulse Resp BP Pulse Ox 97.5 F L 56 L 18 102/63 98 11/27/17 07:49 11/27/17 07:49 11/27/17 07:49 11/27/17 07:49 11/27/17 07:49 Intake and Output: 11/27/17 11/27/17 06:59 18:59 Intake Total 240 Balance 240 - Medications Medications: Current Medications Albuterol Sulfate (Albuterol 0.083% Inhal Ave (2.5 Mg/3 Ml) Ud) 2.5 mg IH [id number] PRN PRN Reason: Shortness of Breath Ibuprofen (Motrin Tab) 600 mg PO Q6H PRN PRN Reason: Pain, moderate (4-7) Last Admin: 11/25/17 14:44 Dose: 600 mg Levothyroxine Sodium (Synthroid) 75 mcg PO 0600 [facility] Last Admin: 11/27/17 05:58 Dose: 75 mcg Linezolid (Zyvox) 600 mg PO Q12 LOUANN PRN Reason: Protocol Last Admin: 11/27/17 09:22 Dose: 600 mg Montelukast Sodium (Singulair) 10 mg PO HS [facility] Last Admin: 11/26/17 21:34 Dose: 10 mg - Labs Labs: 11/27/17 07:00 11/27/17 07:00 - Constitutional Appears: Non-toxic, No Acute Distress, Chronically Ill - Head Exam Head Exam: ATRAUMATIC, NORMOCEPHALIC - Eye Exam Eye Exam: EOMI, PERRL Pupil Exam: NORMAL ACCOMODATION, PERRL - ENT Exam ENT Exam: Mucous Membranes Moist, Normal External Ear Exam, TM's Normal Bilaterally - Neck Exam Neck Exam: Full ROM, Normal Inspection - Respiratory Exam Respiratory Exam: Clear to Ausculation Bilateral, NORMAL BREATHING PATTERN. absent: Rales, Rhonchi, Wheezes - Cardiovascular Exam Cardiovascular Exam: REGULAR RHYTHM, RRR, +S1, +S2 - GI/Abdominal Exam GI & Abdominal Exam: Soft, Normal Bowel Sounds. absent: Distended, Tenderness - Extremities Exam Extremities Exam: Full ROM, Normal Inspection - Neurological Exam Neurological Exam: Alert, Awake, CN II-XII Intact, Oriented x3 - Psychiatric Exam Psychiatric exam: Normal Affect, Normal Mood - Skin Skin Exam: Normal Color Additional comments: Breast exam: left breast with incision approximately 1cm at the 5o'clock position with small amount of surrounding induration but no fluctuance, no expressible fluid, area of erythema extending medially outside the borders previously marked at former hospitalization. No other breast masses bilateral breast left axillary exam: subcutaneous mass approximately 3cm in diameter, mobile, tender. No cervical or infraclavian/supraclavian lymphadenopathy Assessment and Plan - Assessment and Plan (Free Text) Assessment: 27 yo female with left lower quadrant abscess in the left breast with enlarged axillary lymph nodes. Started on Meropenem and Zyvox for treatment. Will check records at [facility] for cultures (hopefully they were done.). Local wound care as per surgery. Explained infectious issues to the patient and potential time frames of improvement. She is still complaining of left breast pain. Gram positive cocci in wound culture. Identified as MRSA. Deescalated to Zyvox alone. Aspiration of the left axillary lymph node vs left axillary mass obtaining 6ml of purulent fluid. The patient will need at least 14 days of antibiotic therapy. Noted that cultures also showed sensitivities to Bactrim and Clindamycin. Thank you for allowing me to participate in the care of the patient, we will follow with you.
--- NOTE | 2017-11-27 15:11 | PN ---
DATE: 11/27/2017 SUBJECTIVE: The axillary 1 cm nodule is enlarged, was aspirated, 5 mL of purulence was removed. It was cultured aerobically and anaerobically. From my point of view, the patient can go home on oral antibiotics. Pending cultures as an outpatient. Jacky Yuen MD
== END 2017-11-27 14:02 | disposition home or self-care (01) | DRG 603 ==
LOC: ED 19:32 → ERH 22:40 → 3RNO 11-25 00:48
PROVIDERS: ADMIT Internal Medicine; ATTEND Internal Medicine
PROC: 0X950ZX Drainage of Left Axilla, Open Approach, Diagnostic (ICD-10-PCS; principal; 2017-11-27)
DX: L02.412 Cutaneous abscess of left axilla (principal); N61.1 Abscess of the breast and nipple; B95.62 Methicillin resistant Staphylococcus aureus infection as the cause of diseases classified elsewhere; E03.9 Hypothyroidism, unspecified; J45.909 Unspecified asthma, uncomplicated; L29.9 Pruritus, unspecified; Z80.3 Family history of malignant neoplasm of breast

== ENCOUNTER 2018-06-24 12:28 | Emergency (ER) | payer BC ==
[2018-06-24 12:33] VITALS: BMI 25.8
[2018-06-24 12:59] VITALS: RESP 18; TEMP 98.6
--- NOTE | 2018-06-24 13:03 | ED PDOC ---
Arrival/HPI - General Chief Complaint: Palpitations Time Seen by Provider: 06/24/18 12:39 Historian: Patient - History of Present Illness Narrative History of Present Illness (Text): 06/24/18 13:02 A 27 year old female, whose past medical history includes asthma(takes inhaler when needed as stated by patient), presents to the emergency department complaining of congestion and cough. Patient reports 6 days ago felt sick but not congested, later on starting 3 days ago, began experiencing symptoms. Patient denies any fever, chills, vomiting, or any other complaints at this time. Denies any history of smoking, intubations or recents steroids. PMD: Dr. Card (located in [place], [place]). Past Medical History - Provider Review Nursing Documentation Reviewed: Yes - Cardiac Hx Cardiac Disorders: No - Pulmonary Hx Respiratory Disorders: Yes Hx Asthma: Yes - Neurological Hx Neurological Disorder: No - HEENT Hx HEENT Disorder: No - Renal Hx Renal Disorder: No - Endocrine/Metabolic Hx Endocrine Disorders: Yes Hx Hypothyroidism: Yes - Hematological/Oncological Hx Blood Disorders: No - Integumentary Hx Dermatological Disorder: Yes Other/Comment: ABSCESS - Musculoskeletal/Rheumatological Hx Musculoskeletal Disorders: No - Gastrointestinal Hx Gastrointestinal Disorders: No - Genitourinary/Gynecological Hx Genitourinary Disorders: No - Psychiatric Hx Psychophysiologic Disorder: No Hx Substance Use: No - Surgical History Hx Section: Yes - Anesthesia Hx Anesthesia: Yes Hx Anesthesia Reactions: No Hx Malignant Hyperthermia: No - Suicidal Assessment Feels Threatened In Home Enviroment: No Family/Social History - Physician Review Nursing Documentation Reviewed: Yes Family/Social History: No Known Family HX Smoking Status: Never Smoked Hx Alcohol Use: No Hx Substance Use: No Allergies/Home Meds Allergies/Adverse Reactions: Allergies shellfish derived Allergy (Verified 06/24/18 12:36) SWELLING vancomycin Allergy (Verified 06/24/18 12:36) ITCHING Home Medications: Home Meds Medication Instructions Recorded Confirmed RX: Levothyroxine Sodium 0.88 mcg PO DAILY 11/06/14 06/24/18 [Synthroid] RX: Albuterol HFA [Ventolin HFA 90 2 puff NEB Q6 PRN 11/24/17 06/24/18 mcg/actuation (8 g)] RX: Montelukast [Singulair] 10 mg PO DAILY 11/24/17 06/24/18 Review of Systems - Physician Review All systems were reviewed & negative as marked: Yes - Review of Systems Constitutional: absent: Fevers, Night Sweats ENT: Sinus Congestion Respiratory: Cough Gastrointestinal: absent: Vomiting Physical Exam - Physical Exam Narrative Physical Exam (Text): Gen: NAD, cooperative, well appearing, non-toxic. Head: NCAT. HEENT: bilateral turbinate swelling (right>left). EYES: PERRL, EOMI, conjunctiva clear, MOUTH: moist MM, posterior pharynx without erythema or exudate, uvula midline. CV: (+) S1S2, RRR, no M/G/R LUNGS: CTA B/L, No W/R/R, good air movement Abd: Soft, NTTP, no guarding, rebound or rigidity. Neuro: AAO x 3, GCS 15, CN 2-12 intact, motor and sensory grossly intact, 5/5 muscle strength B/L UE's and LE's. ext: no cyanosis or edema Vital Signs Reviewed: Yes Vital Signs Temp Pulse Resp BP Pulse Ox 06/24/18 12:28 98.6 F 83 18 121/68 98 Temperature: Afebrile Blood Pressure: Normal Pulse: Regular Respiratory Rate: Normal Appearance: Positive for: Well-Appearing, Non-Toxic, Comfortable Pain Distress: None Mental Status: Positive for: Alert and Oriented X 3 Medical Decision Making ED Course and Treatment: 06/24/18 13:21 Impression: 27 year old female with congestion and cough. Plan: -- EKG -- Prednisone -- Reassess and disposition Progress Notes: EKG: Ordered, reviewed, and independently interpreted the EKG. Rate : 74 BPM Rhythm : NSR Interpretation : No ST-segment elevations or depressions, no T-wave inversions, normal intervals. Comparison : No previous EKG for comparison. - Medication Orders Current Medication Orders: Discontinued Medications Prednisone (Prednisone Tab) 60 mg PO STAT ONE Stop: 06/24/18 12:54 - Scribe Statement The provider has reviewed the documentation as recorded by the Robson Ray Provider Scribe Attestation: All medical record entries made by the Scribe were at my direction and personally dictated by me. I have reviewed the chart and agree that the record accurately reflects my personal performance of the history, physical exam, medical decision making, and the department course for this patient. I have also personally directed, reviewed, and agree with the discharge instructions and disposition. Disposition/Present on Arrival - Present on Arrival Any Indicators Present on Arrival: No History of DVT/PE: No History of Uncontrolled Diabetes: No Urinary Catheter: No History of Decub. Ulcer: No History Surgical Site Infection Following: None - Disposition Have Diagnosis and Disposition been Completed?: Yes Diagnosis: Upper respiratory infection, Asthma Disposition: HOME/ ROUTINE Disposition Time: 13:04 Patient Plan: Discharge Condition: GOOD Discharge Instructions (ExitCare): Asthma, Adult (DC), Viral Upper Respiratory Infection, Adult (DC) Additional Instructions: MAURY NOBLE, thank you for letting us take care of you today. Your provider was Monserrat Fortune MD and you were treated for SOB, CHEST PAIN. The emergency medical care you received today was directed at your acute symptoms. If you were prescribed any medication, please fill it and take as directed. It may take several days for your symptoms to resolve. Return to the Emergency Department if your symptoms worsen, do not improve, or if you have any other problems. Please contact your doctor in 2 days for a follow up appointment. Bring any paperwork you were given at discharge with you along with any medications you are taking to your follow up visit. Our treatment cannot replace ongoing medical care by a primary care provider outside of the emergency department. Thank you for allowing the [facility] team to be part of your care today. If you had an X-Ray or CT scan: A Radiologist will review the ED reading if any change in treatment is needed we will contact you. If you had a blood, urine, or wound culture: It will take several days for the results, if any change in treatment is needed we will contact you. If you had an STI test: It will take 48 hours for the results. Please call after 1 week if you have not heard back. Prescriptions: predniSONE [Prednisone] 40 mg PO DAILY #10 tab Referrals: Romario Card MD [Primary Care Provider] - Follow up with primary Forms: [employer] (E[place]ian)
[2018-06-24 13:36] VITALS: BP 125/70; PULSE 78; O2SAT 99
--- NOTE | 2018-06-24 20:14 | CARD ---
APPROVED REPORT Date of service: 06/24/2018 EKG Measurement Heart [id number] <Conclusion> Normal sinus rhythm Normal ECG
== END 2018-06-24 13:35 | disposition home or self-care (01) ==
LOC: ED 12:28
DX: J45.909 Unspecified asthma, uncomplicated (principal); J06.9 Acute upper respiratory infection, unspecified; E03.9 Hypothyroidism, unspecified